=== PATIENT | male | born 1960 | race Caucasian/White ===

== ENCOUNTER → 2016-11-05 | Outpatient (CLI) | payer OTHER ==
[~2016-11-05] MED LIST: IOHEXOL 240 MG/ML 50ML VIAL. PO ONE; IOHEXOL 300 MG/ML 100ML VIAL. IV ONE; OXYC-250 PO
--- NOTE | 2016-11-05 12:44 | KCIC ---
PQRS STATEMENT One or more of the following individualized dose reduction techniques were utilized for this study: 1.Automated exposure control. 2.Adjustment of the mA and/orkVaccording to patient size. 3.Use of iterative reconstruction technique. Indication:Reason For Study Reason: DIVERTICULITIS, PELVIC PAIN / Spl. Instructions: 98cc Omni 300. Pt on antiobiotics for 2 days. / History: Hx colectomy 10 yrs ago due to diverticultits Comparison: none available Technique: multiple contiguous axial images were obtained through the abdomen and pelvis after intravenous administration of iodinated contrast. Coronal and sagittal reformations were created. Findings: The lung bases are clear. The heart size is normal. The liver is normal in size with no focal lesions identified. The gallbladder is nondistended. The pancreas is unremarkable. The spleen and adrenal glands are within normal limits. The kidneys demonstrate no hydronephrosis or mass. The abdominal aorta is within normal limits for caliber. There is a focal segment of ectasia measures up to 2.7 centimeters. There is mucosal thickening of the ascending colon with some surrounding pericolonic stranding and reactive lymph nodes. The urinary bladder is within normal limits. No destructive osseous lesion is identified. The appendix is not identified. Impression: Findings suggestive of colitis of the ascending colon. Electronically signed by: Donte Khan (Nov 05, 2016 12:43:18)
== END | disposition home or self-care (01) ==
LOC: KCIC CT 10:46
PROVIDERS: ATTEND Family Medicine
DX: K57.92 Diverticulitis of intestine, part unspecified, without perforation or abscess without bleeding (principal); R10.2 Pelvic and perineal pain
CPT/HCPCS: 74177; Q9966; Q9967